=== PATIENT | female | born 1975 | race Caucasian/White ===

== ENCOUNTER 2017-11-14 17:17 | Emergency (ER) | payer OTHER ==
[2017-11-14 17:27] VITALS: TEMP 97.4; BMI 24.9
--- NOTE | 2017-11-14 17:34 | PDOC ---
History of Present Illness <Shonda Krueger - Last Filed: 11/14/17 18:59> - General History Source: Patient Exam Limitations: No Limitations <Lior Timmons - Last Filed: 11/14/17 19:07> - General Chief Complaint: Palpitations Stated Complaint: SHORTNESS OF BREATH,IRREGULAR HEART BEAT Time Seen by Provider: 11/14/17 17:33 - History of Present Illness Initial Comments: 11/14/17 19:06 Patient is a 42 year old female with no significant past medical history who presents to the ED with complaints of SOB that began 2 days ago. Patient reports experiencing SOB suddenly while at before going to sleep. She reports SOB began to relieve itself after taking a sip of water followed by deep slow breaths. Patient reports experiencing sweating and chills secondary to SOB. She reports experiencing secondary episode of SO[facility] this [facility], followed by slight leg cramping in her right lower extremity. Patient states she believes the SOB episodes are anxiety related as she states she has been stressed lately due to her experiencing a cardiac arrest episode 2 weeks ago. Denies chest pain. Denies fevers. Denies nausea, vomiting. Denies coughing. Denies contact with sick individuals, out of state traveling. Denies any other symptoms. Allergies: None Social history: Lives with . No smoking. No alcohol. No illicit drugs. Surgical history: None PMD: None (Lior Timmons) Past History - Past Medical History COPD: No Other medical history: pt denies - Suicide/Smoking/Psychosocial Hx Smoking History: Never smoked Hx Alcohol Use: No Drug/Substance Use Hx: No Substance Use Type: None <Shonda Krueger - Last Filed: 11/14/17 18:59> <Lior Timmons - Last Filed: 11/14/17 19:07> - Past Medical History Allergies/Adverse Reactions: Allergies Allergy/AdvReac Type Severity Reaction Status Date / Time No Known Allergies Allergy Verified 11/14/17 17:24 Home Medications: Ambulatory Orders NK [No Known Home Medication] 11/14/17 Review of Systems <Shonda Krueger - Last Filed: 11/14/17 18:59> - Review of Systems Able to Perform ROS?: Yes <Lior Timmons - Last Filed: 11/14/17 19:07> - Review of Systems Comments:: 11/14/17 19:06 GENERAL/CONSTITUTIONAL: No fever or chills. No weakness. HEAD, EYES, EARS, NOSE AND THROAT: No change in vision. No ear pain or discharge. No sore throat. CARDIOVASCULAR: +SOB. No chest pain RESPIRATORY: No cough, wheezing, or hemoptysis. GASTROINTESTINAL: No nausea, vomiting, diarrhea or constipation. GENITOURINARY: No dysuria, frequency, or change in urination. MUSCULOSKELETAL: +Right lower extremity cramping. No joint or muscle swelling or pain. No neck or back pain. SKIN: No rash NEUROLOGIC: No headache, vertigo, loss of consciousness, or change in strength/ sensation. ENDOCRINE: No increased thirst. No abnormal weight change. HEMATOLOGIC/LYMPHATIC: No anemia, easy bleeding, or history of blood clots. ALLERGIC/IMMUNOLOGIC: No hives or skin allergy. (Lior Timmons) *Physical Exam <Shonda Krueger - Last Filed: 11/14/17 18:59> <Lior Timmons - Last Filed: 11/14/17 19:07> - Vital Signs Last Vital Signs Temp Pulse Resp BP Pulse Ox 97.4 F L 100 H 18 141/91 100 11/14/17 17:18 11/14/17 17:48 11/14/17 17:48 11/14/17 17:18 11/14/17 17:48 - Physical Exam Comments: 11/14/17 19:06 GENERAL: +Slightly anxious. Awake, alert, and fully oriented, in no acute distress HEAD: No signs of trauma EYES: PERRLA, EOMI, sclera anicteric, conjunctiva clear ENT: Auricles normal inspection, hearing grossly normal, nares patent, oropharynx clear without exudates. Moist mucosa NECK: Normal ROM, supple, no lymphadenopathy, JVD, or masses LUNGS: Breath sounds equal, clear to auscultation bilaterally. No wheezes, and no crackles HEART: +Mildly tachycardic. Regular rate and rhythm, normal S1 and S2, no murmurs, rubs or gallops ABDOMEN: Soft, nontender, normoactive bowel sounds. No guarding, no rebound. No masses EXTREMITIES: Normal range of motion, no edema. No clubbing or cyanosis. No cords, erythema, or tenderness NEUROLOGICAL: Cranial nerves II through XII grossly intact. Normal speech, normal gait SKIN: Warm, Dry, normal turgor, no rashes or lesions noted. (Lior Timmons) ED Treatment Course - LABORATORY CBC & Chemistry Diagram: 11/14/17 18:20 11/14/17 18:20 <Shonda Krueger - Last Filed: 11/14/17 18:59> - LABORATORY CBC & Chemistry Diagram: 11/14/17 18:20 11/14/17 18:20 <Lior Timmons - Last Filed: 11/14/17 19:07> - ADDITIONAL ORDERS Additional order review: Laboratory Results 11/14/17 18:20 Sodium 136 Potassium 3.7 Chloride 103 Carbon Dioxide 21 L Anion Gap 12 BUN 14 Creatinine 0.7 Creat Clearance w eGFR > 60 Random Glucose 175 H Calcium 9.8 Total Bilirubin 0.9 AST 22 ALT 16 Alkaline Phosphatase 46 Total Protein 7.7 Albumin 4.8 11/14/17 18:20 RBC 4.21 MCV 89.2 MCHC 34.3 RDW 13.4 MPV 9.5 Neutrophils % 73.1 Lymphocytes % 19.7 Monocytes % 6.4 Eosinophils % 0.3 Basophils % 0.5 - Medications Given in the ED: ED Medications Discontinued Medications Generic Name Dose Route Start Last Admin Trade Name Freq PRN Reason Stop Dose Admin Diazepam 2 mg 11/14/17 18:08 11/14/17 18:19 Valium - PO 11/14/17 18:09 2 mg ONCE ONE Administration Medical Decision Making <Shonda Krueger - Last Filed: 11/14/17 18:59> <Lior Timmons - Last Filed: 11/14/17 19:07> - Medical Decision Making 11/14/17 18:46 Pt presents to the ED complaining of shortness of breath and anxiety after her had cardiac arrest last week. Initially tachycardic in the ED, HR now in the 80s after valium. No risk factors for ACS. Patient is PERC negative. Will check labs to rule out severe anemia and reassess. Likely discharge home if labs are within normal limits. (Shonda Krueger) *DC/Admit/Observation/Transfer - Discharge Dispostion Admit: No <Shonda Krueger - Last Filed: 11/14/17 18:59> <Lior Timmons - Last Filed: 11/14/17 19:07> Diagnosis at time of Disposition: Palpitations - Discharge Dispostion Disposition: HOME Condition at time of disposition: Good - Patient Instructions Printed Discharge Instructions: DI for Palpitations Additional Instructions: return to the ED for new or changing symptoms, severe chest pain or shortness of breath, palpitations that do not improve with relaxation. - Attestations Scribe Attestion: 11/14/17 19:07 Documentation prepared by Lior Timmons, acting as biomedical engineering internship for Shonda Krueger MD, MD/DO. (Lior Timmons)
[2017-11-14] MEDS ORDERED: diazePAM 2 MG TABLET PO ONE (18:08)
[2017-11-14] MEDS ORDERED: diazePAM 2 MG TABLET ONE (18:16)
[2017-11-14 18:32] LABS: BASO % 0.5 % (0-2.0); EOS % 0.3 % (0-4.5); HEMATOCRIT 37.5 % (32.4-45.2); HEMOGLOBIN 12.9 GM/dl (10.7-15.3); LYMPH % 19.7 % (8-40); MCH 30.6 pg (25.7-33.7); MCHC 34.3 g/dl (32.0-36.0); MEAN CELL VOLUME 89.2 fl (80-96); MEAN PLT VOLUME 9.5 fl (7.5-11.1); MONO % 6.4 % (3.8-10.2); NEUT % 73.1 % (42.8-82.8); PLATELET COUNT 250 K/MM3 (134-434); RBC 4.21 M/mm3 (3.60-5.2); RDW 13.4 % (11.6-15.6); WHITE BLOOD COUNT 7.6 K/mm3 (4.0-10.8)
[2017-11-14 18:47] LABS: ALBUMIN 4.8 g/dl (3.5-5.0); ALK PHOS 46 U/L (32-92); ANION GAP 12 (8-16); BILIRUBIN,TOTAL 0.9 mg/dl (0.2-1.0); BLOOD UREA NITROGEN 14 mg/dl (7-18); CALCIUM 9.8 mg/dl (8.4-10.2); CHLORIDE 103 mmol/L (98-107); CO2 21 mmol/L (22-28); CREATININE 0.7 mg/dl (0.6-1.3); GLUCOSE,RANDOM 175 mg/dl (74-106); POTASSIUM 3.7 mmol/L (3.5-5.1); SGOT/AST 22 U/L (10-42); SGPT/ALT 16 U/L (10-40); SODIUM 136 mmol/L (136-145); TOT PROT 7.7 g/dl (6.4-8.3)
[2017-11-14 19:10] VITALS: BP 116/76; PULSE 80
--- NOTE | 2017-11-15 17:06 | EKG ---
Test Reason : Blood Pressure : / mmHG Vent. Rate : 110 BPM Atrial Rate : 110 BPM P-R Int : 148 ms QRS Dur : 090 ms QT Int : 356 ms P-R-T Axes : 073 058 055 degrees QTc Int : 481 ms SINUS TACHYCARDIA NONSPECIFIC ST AND T WAVE ABNORMALITY NO PREVIOUS ECGS AVAILABLE Confirmed by MD VERONICA MARJORY ([id number]) on 11/15/2017 5:05:48 PM Referred By: MD MERRITT Confirmed By:CASIMIRO VERONICA MD
== END 2017-11-14 19:08 | disposition home or self-care (01) ==
LOC: FER 17:17
DX: R00.2 Palpitations (principal)
CPT/HCPCS: 36415; 80053; 85025; 93005; 99283-25

== ENCOUNTER 2018-05-12 16:22 | Emergency (ER) | payer OTHER ==
--- NOTE | 2018-05-12 16:32 | PDOC ---
History of Present Illness - General History Source: Patient Exam Limitations: No Limitations - History of Present Illness Initial Comments: 05/12/18 17:30 The patient is a 43 year old female with no significant past medical history who presents to the ED with complaints of shortness of breath for one month. Patient was seen in the ED on 11/14/17 for intermittent shortness of breath and was given valium and discharged home. Patient states her intermittent shortness of breath returned and worsened over the past month. She states her shortness of breath lasts 5-10 minutes before residing. Denies chest pain. Denies fever or chills. Denies nausea, vomiting, or diarrhea. Denies any other symptoms. <Liam Almaguer - Last Filed: 05/12/18 17:30> - General History Source: Patient Exam Limitations: No Limitations <Kelsi Angeles - Last Filed: 05/13/18 20:01> - General Chief Complaint: Shortness of Breath Stated Complaint: SOB Time Seen by Provider: 05/12/18 16:32 Past History <Liam Almaguer - Last Filed: 05/12/18 17:30> - Past Medical History COPD: No - Suicide/Smoking/Psychosocial Hx Smoking History: Never smoked Hx Alcohol Use: No Drug/Substance Use Hx: No Substance Use Type: None <Kelsi Angeles - Last Filed: 05/13/18 20:01> - Past Medical History Allergies/Adverse Reactions: Allergies Allergy/AdvReac Type Severity Reaction Status Date / Time No Known Allergies Allergy Verified 05/12/18 16:23 Home Medications: Ambulatory Orders NK [No Known Home Medication] 11/14/17 Review of Systems - Review of Systems Able to Perform ROS?: Yes Comments:: 05/12/18 17:30 CONSTITUTIONAL: Absent: fever, chills, diaphoresis, generalized weakness, malaise, loss of appetite HEENT: Absent: rhinorrhea, nasal congestion, throat pain, throat swelling, difficulty swallowing, mouth swelling, ear pain, eye pain, visual Changes CARDIOVASCULAR: Absent: chest pain, syncope, palpitations, irregular heart rate, lightheadedness , peripheral edema RESPIRATORY: + shortness of breath Absent: cough, dyspnea with exertion, orthopnea, wheezing, stridor, hemoptysis GASTROINTESTINAL: Absent: abdominal pain, abdominal distension, nausea, vomiting, diarrhea, constipation, melena, hematochezia GENITOURINARY: Absent: dysuria, frequency, urgency, hesitancy, hematuria, flank pain, genital pain MUSCULOSKELETAL: Absent: myalgia, arthralgia, joint swelling SKIN: Absent: rash, itching, pallor HEMATOLOGIC/IMMUNOLOGIC: Absent: easy bleeding, easy bruising, lymphadenopathy, frequent infections ENDOCRINE: Absent: unexplained weight gain, unexplained weight loss, heat intolerance, cold intolerance NEUROLOGIC: Absent: headache, focal weakness or paresthesias, dizziness, unsteady gait, seizure, mental status changes, bladder or bowel incontinence PSYCHIATRIC: Absent: anxiety, depression, suicidal or homicidal ideation, hallucinations. All Other Systems: Reviewed and Negative <Liam Almaguer - Last Filed: 05/12/18 17:30> *Physical Exam - Vital Signs Last Vital Signs Temp Pulse Resp BP Pulse Ox 98.1 F 94 H 20 149/95 100 05/12/18 16:23 05/12/18 16:23 05/12/18 16:23 05/12/18 16:23 05/12/18 16:23 - Physical Exam Comments: 05/12/18 17:30 GENERAL: Well developed, well nourished. Awake and alert. No acute distress. HEENT: Normocephalic, atraumatic. PERRLA, EOMI. No conjunctival pallor. Sclera are non- icteric. Moist mucous membranes. Oropharynx is clear. NECK: Supple. Full ROM. No JVD. Carotid pulses 2+ and symmetric, without bruits. No thyromegaly. No lymphadenopathy. CARDIOVASCULAR: Regular rate and rhythm. No murmurs, rubs, or gallops. Distal pulses are 2+ and symmetric. PULMONARY: No evidence of respiratory distress. Lungs clear to auscultation bilaterally. No wheezing, rales or rhonchi. ABDOMINAL: Soft. Non-tender. Non-distended. No rebound or guarding. No organomegaly. Normoactive bowel sounds. MUSCULOSKELETAL Normal range of motion at all joints. No bony deformities or tenderness. No CVA tenderness. EXTREMITIES: No cyanosis. No clubbing. No edema. No calf tenderness. SKIN: Warm and dry. Normal capillary refill. No rashes. No jaundice. NEUROLOGICAL: Alert, awake, appropriate. Cranial nerves 2-12 intact. No deficits to light touch and temperature in face, upper extremities and lower extremities. No motor deficits in the in face, upper extremities and lower extremities. Normoreflexic in the upper and lower extremities. Normal speech. Toes are down- going bilaterally. Gait is normal without ataxia. PSYCHIATRIC: Cooperative. Good eye contact. Appropriate mood and affect. <Liam Almaguer - Last Filed: 05/12/18 17:30> ED Treatment Course - LABORATORY CBC & Chemistry Diagram: 05/12/18 17:42 05/12/18 17:42 <Kelsi Angeles - Last Filed: 05/13/18 20:01> Medical Decision Making - Medical Decision Making 05/12/18 17:45 Ms Huddleston is a 43-year-old female who is otherwise healthy and presents emergency department with a complaint of short of breath. Patient states she has been in her usual state of health. She noticed since intermittent episodes of shortness of breath. They are nonexertional. She is no associated chest pain. Some time she's feels her heart racing. No recent travel, no lower extremity edema. No fevers, chills, cough. She was seen in the emergency department several months ago for the same thing. Workup was negative. She was given Valium, which she states improved her symptoms Patient was discharged home to follow up with her primary care physician which she did not do. Patient's A she did not do it because she felt better. However within last week her symptoms have recurred. She also notes that when she witnessed her kids into a ride at [facility] which was very dark a triggered her symptoms. She feels short of breath mostly at night when she lays down particularly after difficulty. Her physical exam is normal. Unlikely PE given no tachycardia, no chest pain, no hypoxia, chronicity of symptoms Will do basic labs. Will do an EKG. Will do a chest x-ray. Will plan to discharge home. Patient understands the importance of follow-up with a primary care physician as well as final inspector and tester EKG: Sinus rhythm, rate of 88 bpm, axis is normal, intervals are normal. ST segments with depressions noted in the inferior and anterior leads. This is actually seen on her EKG from November 2017. T waves are upright. No pathological Q waves. 05/12/18 18:20 Laboratory Tests 05/12/18 05/12/18 17:42 17:42 Sodium 134 L Potassium 3.7 Chloride 104 Carbon Dioxide 25 BUN 13 Creatinine 0.6 Troponin I < 0.03 05/12/18 18:20 CXR negative Please follow up with PMD within 1 week Return to the ER for any other concerns or complaints Clinical impression: shortness of breath, initial presentation <Kelsi Angeles - Last Filed: 05/13/18 20:01> *DC/Admit/Observation/Transfer - Attestations Scribe Attestion: 05/12/18 17:31 Documentation prepared by Liam Almaguer, acting as manager of medical for Kelsi Angeles MD <Liam Almaguer - Last Filed: 05/12/18 17:30> - Discharge Dispostion Decision to Admit order: No <Kelsi Angeles - Last Filed: 05/13/18 20:01> Diagnosis at time of Disposition: Shortness of breath - Discharge Dispostion Disposition: HOME Condition at time of disposition: Stable - Referrals Referrals: Alli Rolon MD [Staff Physician] - - Patient Instructions Printed Discharge Instructions: Anxiety and Panic Attacks (Alternative Therapy) , DI for Anxiety -- Adult, DI for Shortness of Breath, How to Manage Shortness of Breath Additional Instructions: For coming into emergency department today. Please be sure to follow-up with your primary care physician within one week. Please return to emergency department for any other concerns or complaints. - Post Discharge Activity Forms/Work/School Notes: Back to Work
[2018-05-12 16:47] VITALS: BP 149/95; PULSE 94; TEMP 98.1; BMI 24.9
[2018-05-12 17:56] LABS: BASO % 0.7 % (0-2.0); EOS % 0.8 % (0-4.5); HEMATOCRIT 32.4 % (32.4-45.2); HEMOGLOBIN 10.8 GM/dl (10.7-15.3); LYMPH % 19.8 % (8-40); MCHC 33.2 g/dl (32.0-36.0); MEAN CELL VOLUME 84.3 fl (80-96); MEAN PLT VOLUME 8.7 fl (7.5-11.1); MONO % 7.8 % (3.8-10.2); NEUT % 70.9 % (42.8-82.8); PLATELET COUNT 280 K/MM3 (134-434); RBC 3.85 M/mm3 (3.60-5.2); RDW 14.3 % (11.6-15.6); WHITE BLOOD COUNT 8.3 K/mm3 (4.0-10.8)
[2018-05-12 18:06] LABS: ANION GAP 5 (8-16); BLOOD UREA NITROGEN 13 mg/dl (7-18); CALCIUM 9.2 mg/dl (8.4-10.2); CHLORIDE 104 mmol/L (98-107); CO2 25 mmol/L (22-28); CREATININE 0.6 mg/dl (0.6-1.3); GLUCOSE,RANDOM 87 mg/dl (74-106); POTASSIUM 3.7 mmol/L (3.5-5.1); SODIUM 134 mmol/L (136-145)
--- NOTE | 2018-05-14 10:16 | EKG ---
Test Reason : Blood Pressure : / mmHG Vent. Rate : 088 BPM Atrial Rate : 088 BPM P-R Int : 142 ms QRS Dur : 092 ms QT Int : 400 ms P-R-T Axes : 078 062 045 degrees QTc Int : 484 ms NORMAL SINUS RHYTHM NONSPECIFIC ST AND T WAVE ABNORMALITY PROLONGED QT ABNORMAL ECG WHEN COMPARED WITH ECG OF 14-NOV-2017 17:38, NO SIGNIFICANT CHANGE WAS FOUND Confirmed by BRITTANY RAY MD ([id number]) on 05/14/2018 10:16:30 AM Referred By: MD ALBARADO Confirmed By:BRITTANY RAY MD
== END 2018-05-12 18:29 | disposition home or self-care (01) ==
LOC: FER 16:22
DX: R06.02 Shortness of breath (principal)
CPT/HCPCS: 36415; 71046-TC-FY; 80048; 84484; 85025; 93005; 99282-25

== ENCOUNTER 2020-11-09 00:23 | Emergency (ER) | payer OTHER ==
[2020-11-09 00:42] VITALS: BP 136/85; PULSE 79; TEMP 97.8; BMI 24.9
[2020-11-09 02:27] LABS: EPI CELLS 24 /uL (0-25.1); HYALINE CASTS 6 /uL (0-3.1); PH,URINE 5.5 (5.0-8.0); URINE APPEARANCE TURBID; URINE BACTERIA >9,000 /uL (0-1359); URINE BILIRUBIN NEGATIVE (NEGATIVE); URINE COLOR YELLOW; URINE GLUCOSE (UA) NEGATIVE (NEGATIVE); URINE KETONE NEGATIVE (NEGATIVE); URINE LEUK ESTERASE 3+ (NEGATIVE); URINE NITRITE POSITIVE (NEGATIVE); URINE PROTEIN 2+ (NEGATIVE); URINE RBC 336 /uL (0-23.9); URINE UROBILINOGEN 0.2 mg/dL (0.2-1.0); URINE WBC 6683 /uL (0-25.8)
[2020-11-09] MEDS ORDERED: CIPROFLOXACIN 500 MG TABLET (RESTRICTED TO ID) PO ONE (03:05)
[2020-11-09] MEDS ORDERED: ACETAMINOPHEN 500 MG TABLET (FP) PO ONE (03:06)
[2020-11-09] MEDS ORDERED: ACETAMINOPHEN 500 MG TABLET (FP) ONE (03:07)
[2020-11-09] MEDS ORDERED: CIPROFLOXACIN 250 MG TABLET (RESTRICTED TO ID) PO ONE (03:08)
[2020-11-09 11:38] LABS: YEAST NON SEEN (NEGATIVE)
== END 2020-11-09 03:12 | disposition home or self-care (01) ==
LOC: FER 00:23
DX: D25.9 Leiomyoma of uterus, unspecified (principal); N30.00 Acute cystitis without hematuria
CPT/HCPCS: 76856-TC; 81003; 84703; 99284-25

== ENCOUNTER 2021-04-28 00:12 | Emergency (ER) | payer OTHER ==
[2021-04-28 00:18] VITALS: BP 137/93; PULSE 89; TEMP 98; BMI 20.6
[2021-04-28 01:25] LABS: EPI CELLS 8 /uL (0-25.1); HYALINE CASTS 6 /uL (0-3.1); PH,URINE 5.5 (5.0-8.0); URINE APPEARANCE TURBID; URINE BACTERIA 4735 /uL (0-1359); URINE BILIRUBIN 1+ (NEGATIVE); URINE COLOR RED; URINE GLUCOSE (UA) NEGATIVE (NEGATIVE); URINE KETONE NEGATIVE (NEGATIVE); URINE LEUK ESTERASE 3+ (NEGATIVE); URINE NITRITE NEGATIVE (NEGATIVE); URINE PROTEIN 3+ (NEGATIVE); URINE UROBILINOGEN 0.2 mg/dL (0.2-1.0); URINE WBC 1756 /uL (0-25.8)
[2021-04-28] MEDS ORDERED: NITROFURANTOIN MACROCRYSTAL 50 MG CAPSULE (FP) PO SCH (01:30)
[2021-04-28] MEDS ORDERED: NITROFURANTOIN MACROCRYSTAL 50 MG CAPSULE (FP) ONE (01:31)
[2021-04-28 04:30] LABS: URINE RBC 34304.4 /uL (0-23.9); YEAST NONE SEEN (NEGATIVE)
== END 2021-04-28 01:34 | disposition home or self-care (01) ==
LOC: FER 00:12
DX: N30.91 Cystitis, unspecified with hematuria (principal)
CPT/HCPCS: 81003; 87086; 87186; 99283-25

== ENCOUNTER 2022-02-22 15:34 | Emergency (ER) | payer OTHER ==
[2022-02-22 15:47] VITALS: BP 121/79; PULSE 71; TEMP 97.4; BMI 24.1
== END 2022-02-22 16:29 | disposition home or self-care (01) ==
LOC: FER 15:34
DX: H92.02 Otalgia, left ear (principal)
CPT/HCPCS: 99283-25

== ENCOUNTER 2023-02-15 23:53 | Emergency (ER) | payer OTHER ==
[2023-02-16 00:45] VITALS: BP 122/82; PULSE 64; RESP 16; TEMP 97.3; BMI 23.3
== END 2023-02-16 01:36 | disposition home or self-care (01) ==
LOC: FER 23:53
DX: L57.8 Other skin changes due to chronic exposure to nonionizing radiation (principal); L29.9 Pruritus, unspecified
CPT/HCPCS: 99283-25

== ENCOUNTER 2023-04-14 12:19 | Emergency (ER) | payer OTHER ==
[2023-04-14 12:30] VITALS: BP 148/87; PULSE 71; RESP 20; TEMP 98; BMI 23.3
[2023-04-14 14:08] LABS: EPITHELIAL CELLS RARE /hpf
== END 2023-04-14 16:18 | disposition home or self-care (01) ==
LOC: FER 12:19
DX: R10.2 Pelvic and perineal pain (principal); N94.9 Unspecified condition associated with female genital organs and menstrual cycle; R30.0 Dysuria; R39.11 Hesitancy of micturition; R39.15 Urgency of urination
CPT/HCPCS: 76856-TC; 81003; 81015; 87086; 99284-25